=== PATIENT | male | born 1970 | race Caucasian/White ===

== ENCOUNTER 2019-06-25 10:40 | Emergency (ER) | payer OTHER ==
[2019-06-25] MEDS ORDERED: Ventolin HFA Inhaler 60 PUFF INHALER ONE (12:06)
[2019-06-25] MEDS ORDERED: predniSONE 20 MG TAB ONE (12:07)
[2019-06-25] MEDS ORDERED: Aspirin Chewable 81 MG TAB ONE (12:07)
[2019-06-25 12:31] LABS: Band 1 % (5-11); Eosinophils 1 % (0-10); Giant Platelets SLIGHT; Hemoglobin 18.2 g/dL (14.0-18.0); Large Platelets SLIGHT; Lymphocytes 19 % (21-51); MDiff Complete? YES; Mean Corpuscular Hemoglobin 29.8 pg (27.0-31.0); Mean Platelet Volume 10.4 fL (7.4-10.4); Monocytes 1 % (0-10); Neutrophil 69 % (42-75); Platelet Count 231 thou/uL (130-400); Platelet Morphology Comment Appears Adequate; RBC Distribution Width 11.8 % (11.5-14.5); Reactive Lymphocytes 9 % (0-10); Red Blood Cell (RBC) Count 6.13 mill/uL (4.70-6.10); White Blood Cell (WBC) Count 11.3 thou/uL (4.8-10.8)
--- NOTE | 2019-06-25 13:26 | RAD ---
PORTABLE CHEST 1 VIEW: DATE: 06/25/2019. TIME: 12:11 PM. HISTORY: Dyspnea. FINDINGS: The heart size is normal. The lungs are well expanded without lobar consolidation, pneumothoraces, o r pleural effusions. IMPRESSION: No radiographic evidence of acute cardiopulmonary process. POS: YFN
[2019-06-25] MEDS ORDERED: Enoxaparin Sodium 40 MG/0.4 ML SYRINGE ONE (15:03)
[2019-06-25] MEDS ORDERED: Enoxaparin Sodium 80 MG/0.8 ML SYRINGE ONE (15:03)
[2019-06-25] MEDS ORDERED: cefTRIAXone\\ROCEPHIN 1 GM VIAL ONE (15:03)
[2019-06-25 18:41] LABS: ALT (SGPT) 58 U/L (8-55); AST (SGOT) 23 U/L (5-34); Alkaline Phosphatase 68 U/L (40-110); Anion Gap 19 mmol/L (10-20); BUN (Urea Nitrogen) 23 mg/dL (8.9-20.6); Bilirubin, Total 0.5 mg/dL (0.2-1.2); Calc. Creatinine Clearance 0 mL/min (70-130); Calcium 9.3 mg/dL (7.8-10.44); Carbon Dioxide 21 mmol/L (22-29); Chloride 101 mmol/L (98-107); Estimated GFR-MDRD 73; Globulin 3.1 g/dL (2.4-3.5); Glucose 195 mg/dL (70-105); Potassium 3.4 mmol/L (3.5-5.1); Protein, Total 7.1 g/dL (6.0-8.3); Sodium 138 mmol/L (136-145)
[2019-06-25] MEDS ORDERED: methylPREDNISolone Sod Succ/PF 125 MG/2 ML VIAL ONE (23:26)
[2019-06-25] MEDS ORDERED: Famotidine In NaCl 20 mg/50 ml Premix Bag ONE (23:28)
== END 2019-06-25 15:15 | disposition home or self-care (01) ==
LOC: MADERS 10:40
DX: R06.00 Dyspnea, unspecified (principal); R21 Rash and other nonspecific skin eruption; R68.83 Chills (without fever); E11.9 Type 2 diabetes mellitus without complications; I10 Essential (primary) hypertension; F17.210 Nicotine dependence, cigarettes, uncomplicated; Z79.84 Long term (current) use of oral hypoglycemic drugs; Z79.899 Other long term (current) drug therapy
CPT/HCPCS: 36415; 71045; 80053; 83880; 84484; 85025; 85379; 93005; J0696; J1650; J2930; J7512

== ENCOUNTER 2019-06-25 19:41 | Emergency (ER) | payer OTHER ==
[~2019-06-25 19:41] MED LIST: Famotidine In NaCl 20 mg/50 ml Premix Bag ONE; Iopamidol 370 76% 125 ML VIAL FS ONE; Sodium Chloride 0.9% 1,000 ML BAG ONE; Sodium Chloride 0.9% 100 ML BAG ONE; methylPREDNISolone Sod Succ/PF 125 MG/2 ML VIAL ONE
[2019-06-25 20:57] LABS: Hemoglobin 16.2 g/dL (14.0-18.0); Mean Corpuscular HGB CONC 32.5 g/dL (32.0-36.0); Mean Corpuscular Hemoglobin 30.5 pg (27.0-31.0); Mean Corpuscular Volume 93.7 fL (78.0-98.0); Mean Platelet Volume 11.9 fL (7.4-10.4); Platelet Count 177 thou/uL (130-400); Red Blood Cell (RBC) Count 5.31 mill/uL (4.70-6.10); White Blood Cell (WBC) Count 16.6 thou/uL (4.8-10.8)
[2019-06-25 20:58] LABS: #Lymphocytes 0.7 thou/uL (1.20-3.40); #Monocytes 0.4 thou/uL (0.11-0.59); #Neutrophils 15.5 thou/uL (1.40-6.50); %Basophils 0.2 % (0.0-1.0); %Eosinophils 0.1 % (0.0-10.0); %Monocytes 2.5 % (0.0-10.0); %Neutrophils 93.1 % (42.0-75.0)
[2019-06-25 21:08] LABS: Albumin 3.7 g/dL (3.5-5.0)
[2019-06-25 21:09] LABS: ALT (SGPT) 50 U/L (8-55); AST (SGOT) 19 U/L (5-34); Alkaline Phosphatase 53 U/L (40-110); BUN (Urea Nitrogen) 26 mg/dL (8.9-20.6); Bilirubin, Total 0.5 mg/dL (0.2-1.2); CK (CPK) 70 U/L (30-200); Calcium 8.8 mg/dL (7.8-10.44); Carbon Dioxide 22 mmol/L (22-29); Chloride 100 mmol/L (98-107)
[2019-06-25 21:10] LABS: Calc. Creatinine Clearance 0 mL/min (70-130); Estimated GFR-MDRD 53; Globulin 2.8 g/dL (2.4-3.5); Glucose 385 mg/dL (70-105); Potassium 4.6 mmol/L (3.5-5.1); Protein, Total 6.5 g/dL (6.0-8.3); Sodium 135 mmol/L (136-145)
[2019-06-26 00:03] LABS: Anion Gap 18 mmol/L (10-20)
--- NOTE | 2019-06-26 11:25 | CT ---
CTA OF THE CHEST UTILIZING IV CONTRAST AND PE PROTOCOL AND 3D REFORMATTED IMAGING: INDICATION: History of dyspnea. COMPARISON: Prior chest radiograph dated 06/25/2019. FINDINGS: Respiratory motion artifact limits evaluation of the segmental pulmonary arterial branches. No defin ite central pulmonary embolus is evident. There are coronary artery calcifications. No enlarged lym ph nodes are evident. No definite airspace consolidation is noted. Visualized upper abdomen demonstrates fatty infiltratio n of the liver. Visualized adrenal glands are unremarkable appearing. There is scattered degenerative and osteoarthritic change. No definite acute osseous abnormality is evident. IMPRESSION: 1. No definite central pulmonary embolus demonstrated. Limitations of the exam due to respiratory m otion artifact. 2. No definite acute cardiopulmonary abnormality. 3. Prominent fatty liver. POS: BH
== END 2019-06-25 23:52 | disposition home or self-care (01) ==
LOC: MADERS 19:41
DX: T78.40XA Allergy, unspecified, initial encounter (principal); R06.02 Shortness of breath; R42 Dizziness and giddiness; E78.00 Pure hypercholesterolemia, unspecified; E11.9 Type 2 diabetes mellitus without complications; I10 Essential (primary) hypertension; F17.210 Nicotine dependence, cigarettes, uncomplicated; Z79.84 Long term (current) use of oral hypoglycemic drugs; Z79.899 Other long term (current) drug therapy
CPT/HCPCS: 36415; 71045; 71275; 80053; 82550; 83605; 83880; 84484; 85025; 85379; 93005; 96361; 96374; 96375; J0696; J1650; J2930; J3490; J7050; J7512; Q9967